=== PATIENT | male | born 1995 | race Caucasian/White ===

== ENCOUNTER 2020-05-27 02:08 | Emergency (ER) | payer BC, MEDICAID ==
[~2020-05-27] VITALS: Ht 180.3 cm; Wt 72.6 kg
[2020-05-27 02:15] VITALS: BP_SYST 142
--- NOTE | 2020-05-27 02:18 | NUR ---
Patient to ER bed 3 to gown for evaluation. Side rails up.
--- NOTE | 2020-05-27 02:20 | NUR ---
PT A&O X4 FROM HOME C/O OF RIGHT SHOULDER PAIN AFTER CLIMBING A 10FT FENCE EARLIER TODAY AT 4PM AND FELL OFF. PT STATES HE LANDED ON HIS SHOULDER. PT HAS AN ABRASION ON RIGHT EYEBROW. PT DENIES LOSS OF CONSCIOUSNESS. PT RATES PAIN 9 OUT OF 10. PT UNABLE TO MOBILIZE ARM WITHOUT EXTREME PAIN.
--- NOTE | 2020-05-27 02:26 | NUR ---
ER Dr. WASHINGTON at bedside examining patient.
[2020-05-27] MEDS ORDERED: IBUPROFEN 600 MG TABLET PO ONE (03:00)
--- NOTE | 2020-05-27 03:10 | NUR ---
patient placed in sling for right should per MD order.
[2020-05-27 03:22] VITALS: BP_SYST 124
--- NOTE | 2020-05-27 03:22 | NUR ---
Patient given written and verbal discharge instructions and verbalizes understanding. ER MD discussed with patient the results and treatment provided. Patient in stable condition. ID arm band removed. No Rx given. Patient educated on pain management and to follow up with PMD. Pain Scale 8/10. Opportunity for questions provided and answered. Medication side effect fact sheet provided.
== END 2020-05-27 03:22 | disposition home or self-care (01) ==
LOC: SED 02:08
DX: S42.031A Displaced fracture of lateral end of right clavicle, initial encounter for closed fracture (principal); S00.211A Abrasion of right eyelid and periocular area, initial encounter; F12.90 Cannabis use, unspecified, uncomplicated; F17.210 Nicotine dependence, cigarettes, uncomplicated; W18.39XA Other fall on same level, initial encounter; Y93.89 Activity, other specified; Y92.89 Other specified places as the place of occurrence of the external cause; Y99.8 Other external cause status
CPT/HCPCS: 73030; 99283

== ENCOUNTER 2021-01-26 11:04 | Emergency (ER) | payer BC, MEDICAID ==
[~2021-01-26] VITALS: Ht 180.3 cm; Wt 59.9 kg
[2021-01-26 11:18] VITALS: BP_SYST 139
[2021-01-26] MEDS ORDERED: NACL 0.9% 1,000 ML, NACL 0.9% 1,000 ML IV ONE (12:00)
[2021-01-26 12:02] LABS: BILIRUBIN,URINE NEGATIVE (NEGATIVE); BLOOD, URINE NEGATIVE (NEGATIVE); CLARITY/URINE CLEAR (CLEAR); COLOR,URINE YELLOW (YELLOW); GLUCOSE,URINE NEGATIVE (NEGATIVE); KETONES,URINE NEGATIVE (NEGATIVE); LEUKOCYTE ESTERASE ,URINE NEGATIVE (NEGATIVE); NITRITE, URINE NEGATIVE (NEGATIVE); PROTEIN URINE NEGATIVE (NEGATIVE); UROBILINOGEN,URINE 0.2 (0.2-1.0)
[2021-01-26] MEDS ORDERED: KETOROLAC TROMETHAMINE 15 MG VIAL IVP ONE (12:15)
[2021-01-26] MEDS ORDERED: ONDANSETRON HCL 4 MG/2 ML VIAL IVP ONE (12:15)
[2021-01-26 12:20] LABS: BASOPHILS # (AUTO) 0.1 K/uL (0.0-0.2); BASOPHILS % (AUTO) 1.1 % (0.0-2.0); EOSINOPHILS % (AUTO) 0.1 % (0.0-4.0); HEMATOCRIT 38.9 % (36-54); HEMOGLOBIN 13.4 g/dL (14.0-18.0); LYMPHOCYTES # (AUTO) 1.4 K/uL (1.0-5.5); LYMPHOCYTES % (AUTO) 26.7 % (20.5-51.5); MEAN CORPUSCULAR HEMOGLOBIN 36 pg (27-31); MEAN CORPUSCULAR HGB CONC 34 % (32-36); MEAN CORPUSCULAR VOLUME 103 fL (79.0-98.0); MONOCYTES # (AUTO) 0.3 K/uL (0.0-1.0); MONOCYTES % (AUTO) 6.1 % (1.7-9.3); NEUTROPHILS # (AUTO) 3.4 K/uL (1.8-7.7); PLATELET COUNT (AUTO) 251 K/uL (130-430); RED BLOOD CELL COUNT(AUTO) 3.77 MIL/uL (4.2-6.2); RED CELL DISTRIBUTION WIDTH 13.1 % (9.0-15.0); WHITE BLOOD COUNT (AUTO) 5.1 K/uL (4.8-10.8)
[2021-01-26 12:22] LABS: CALCIUM 9.2 mg/dL (8.4-11.0); CREATININE 1.1 mg/dL (0.55-1.30); POTASSIUM 3.3 mmol/L (3.5-5.1)
[2021-01-26 12:24] LABS: INR 1.1 (0.80-1.20)
[2021-01-26 12:28] LABS: ALBUMIN 3.7 g/dL (3.4-4.8); TOTAL BILIRUBIN 1.4 mg/dL (0.0-1.0)
[2021-01-26] MEDS ORDERED: POTASSIUM CHLORIDE 20 MEQ TAB.PRT.SR PO ONE (13:15)
[2021-01-26] MEDS ORDERED: ONDA-8 TL (14:07)
[2021-01-26 14:17] VITALS: BP_SYST 139
== END 2021-01-26 14:15 | disposition home or self-care (01) ==
LOC: SED 11:04
DX: T67.5XXA Heat exhaustion, unspecified, initial encounter (principal); R79.89 Other specified abnormal findings of blood chemistry; R42 Dizziness and giddiness; Z79.899 Other long term (current) drug therapy; X30.XXXA Exposure to excessive natural heat, initial encounter; Y93.89 Activity, other specified; Y92.89 Other specified places as the place of occurrence of the external cause; Y99.0 Civilian activity done for income or pay
CPT/HCPCS: 36415; 80053; 81003; 82550; 83690; 85025; 85610; 96361; 96374; 96375; 99284; J1885; J2405; J7030

== ENCOUNTER 2021-03-20 08:37 | Emergency (ER) | payer BC, MEDICAID ==
[~2021-03-20] VITALS: Ht 180.3 cm; Wt 72.6 kg
[~2021-03-20 08:37] MED LIST: ONDA-8 TL
[2021-03-20 08:57] VITALS: BP_SYST 139
--- NOTE | 2021-03-20 09:00 | NUR ---
Patient to ER bed H1 to gown for evaluation. Side rails up.
--- NOTE | 2021-03-20 09:02 | NUR ---
Pt brought by self , A&Ox4, pt presents to ER with L inguinal pain x 1 week, bruise noted in the area, pt states he may moved the wrong way. patient able to ambulate, will cont to monitor.
--- NOTE | 2021-03-20 09:05 | NUR ---
Dr Crespo evaluating patient at bedside
[2021-03-20] MEDS ORDERED: NAPR-690 PO (09:21)
[2021-03-20 09:30] VITALS: BP_SYST 139
--- NOTE | 2021-03-20 09:30 | NUR ---
Patient given written and verbal discharge instructions and verbalizes understanding. ER MD discussed with patient the results and treatment provided. Patient in stable condition. ID arm band removed. Rx of Naproxen given. Patient educated on pain management and to follow up with PMD. Pain Scale 3/10 tolerable for patient . Opportunity for questions provided and answered. Medication side effect fact sheet provided.
== END 2021-03-20 09:30 | disposition home or self-care (01) ==
LOC: SED 08:37
DX: S76.212A Strain of adductor muscle, fascia and tendon of left thigh, initial encounter (principal); X50.1XXA Overexertion from prolonged static or awkward postures, initial encounter; Z79.899 Other long term (current) drug therapy; Y93.89 Activity, other specified; Y92.89 Other specified places as the place of occurrence of the external cause; Y99.8 Other external cause status
CPT/HCPCS: 99282

== ENCOUNTER 2021-03-24 04:37 | Emergency (ER) | payer OTHER, MEDICAID ==
[~2021-03-24] VITALS: Ht 177.8 cm; Wt 72.6 kg
[~2021-03-24 04:37] MED LIST changes: +NAPR-690 PO
[2021-03-24 04:45] VITALS: BP_SYST 121
--- NOTE | 2021-03-24 05:35 | NUR ---
Patient to ER bed 8 to gown for evaluation. Side rails up. Report given to BRONWYN VILA.
--- NOTE | 2021-03-24 05:36 | NUR ---
Came in ER ambulatory from home this 26 year old male, AAOX4, breathing spontaneously at room air, not in distress noted. With chief complaints of nausea/ vomiting since yesterday, denies abd pain/ sob. no known medical history, s/p tonsillectomy, vital signs stable
--- NOTE | 2021-03-24 05:55 | NUR ---
Seen and examined by Dr. Bertrand, ER Attending
[2021-03-24 06:09] VITALS: BP_SYST 121
--- NOTE | 2021-03-24 06:09 | NUR ---
Patient given written and verbal discharge instructions and verbalizes understanding. ER MD discussed with patient the results and treatment provided. Patient in stable condition. ID arm band removed. no Rx of given. Patient educated to follow up with PMD. Pain Scale 0/10. Opportunity for questions provided and answered.
== END 2021-03-24 06:09 | disposition home or self-care (01) ==
LOC: SED 04:37
DX: R11.2 Nausea with vomiting, unspecified (principal); Z79.899 Other long term (current) drug therapy
CPT/HCPCS: 99281

== ENCOUNTER 2021-06-24 09:11 | Emergency (ER) | payer MEDICAID, SELFPAY ==
[~2021-06-24] VITALS: Ht 182.9 cm; Wt 63.5 kg
[2021-06-24 09:35] VITALS: BP_SYST 138
[2021-06-24] MEDS ORDERED: ONDANSETRON HCL 4 MG/2 ML VIAL IVP ONE (09:45)
[2021-06-24] MEDS ORDERED: NACL 0.9% 1,000 ML IV ONE (09:45)
[2021-06-24 10:07] LABS: BASOPHILS # (AUTO) 0.1 K/uL (0.0-0.2); BASOPHILS % (AUTO) 1.6 % (0.0-2.0); EOSINOPHILS % (AUTO) 0.2 % (0.0-4.0); HEMATOCRIT 43.1 % (36-54); HEMOGLOBIN 15.2 g/dL (14.0-18.0); LYMPHOCYTES # (AUTO) 2.7 K/uL (1.0-5.5); LYMPHOCYTES % (AUTO) 41.9 % (20.5-51.5); MEAN CORPUSCULAR HEMOGLOBIN 35 pg (27-31); MEAN CORPUSCULAR HGB CONC 35 % (32-36); MEAN CORPUSCULAR VOLUME 100 fL (79.0-98.0); MONOCYTES # (AUTO) 0.5 K/uL (0.0-1.0); MONOCYTES % (AUTO) 7.3 % (1.7-9.3); NEUTROPHILS # (AUTO) 3.1 K/uL (1.8-7.7); PLATELET COUNT (AUTO) 302 K/uL (130-430); RED BLOOD CELL COUNT(AUTO) 4.32 MIL/uL (4.2-6.2); WHITE BLOOD COUNT (AUTO) 6.3 K/uL (4.8-10.8)
[2021-06-24 10:21] LABS: CALCIUM 8.8 mg/dL (8.4-11.0); CREATININE 1.25 mg/dL (0.55-1.30); POTASSIUM 3.5 mmol/L (3.5-5.1)
[2021-06-24 10:26] LABS: ALBUMIN 4.4 g/dL (3.4-4.8); TOTAL BILIRUBIN 1.1 mg/dL (0.0-1.0)
[2021-06-24] MEDS ORDERED: ONDA-8 TL (10:40)
[2021-06-24 10:48] LABS: BILIRUBIN,URINE NEGATIVE (NEGATIVE); BLOOD, URINE NEGATIVE (NEGATIVE); CLARITY/URINE CLEAR (CLEAR); COLOR,URINE YELLOW (YELLOW); GLUCOSE,URINE NEGATIVE (NEGATIVE); KETONES,URINE NEGATIVE (NEGATIVE); LEUKOCYTE ESTERASE ,URINE NEGATIVE (NEGATIVE); NITRITE, URINE NEGATIVE (NEGATIVE); PROTEIN URINE NEGATIVE (NEGATIVE); UROBILINOGEN,URINE 0.2 (0.2-1.0)
[2021-06-24 11:00] LABS: BARBITURATE, URINE NEGATIVE (NEG <=200); BENZODIAZEPINE, URINE NEGATIVE (NEG <=150); CANNABINOID, URINE POSITIVE (NEG <=50); COCAINE, URINE NEGATIVE (NEG <=150); METHAMPHETAMINES SCREEN,URINE NEGATIVE (NEG <=500); OPIATE, URINE NEGATIVE (NEG <=100); PHENCYCLIDINE SCREEN,URINE NEGATIVE (NEG <=25); UR TRICYCLIC ANTIDEPRESSANTS NEGATIVE (NEG <=300); URINE AMPHETAMINE NEGATIVE (NEG <=500); URINE METHADONE NEGATIVE (NEG <=200); URINE OXYCODONE SCREEN NEGATIVE (NEG <=100); URINE PROPOXYPHENE SCREEN NEGATIVE (NEG <=300)
[2021-06-24 11:26] VITALS: BP_SYST 138
== END 2021-06-24 11:25 | disposition home or self-care (01) ==
LOC: SED 09:11
DX: F10.129 Alcohol abuse with intoxication, unspecified (principal); R11.10 Vomiting, unspecified; R19.7 Diarrhea, unspecified; F17.210 Nicotine dependence, cigarettes, uncomplicated; Z79.899 Other long term (current) drug therapy; Y90.8 Blood alcohol level of 240 mg/100 ml or more
CPT/HCPCS: 36415; 80053; 80307; 81003; 83690; 85025; 96361; 96374; 99283; G0482; J2405; J7030

== ENCOUNTER 2022-02-07 10:40 | Emergency (ER) | payer MEDICAID ==
[~2022-02-07] VITALS: Ht 182.9 cm; Wt 68.0 kg
[2022-02-07 15:02] LABS: BASOPHILS % (AUTO) 0.7 % (0.0-2.0); EOSINOPHILS % (AUTO) 0.5 % (0.0-4.0); HEMATOCRIT 38.3 % (36-54); HEMOGLOBIN 13.6 g/dL (14.0-18.0); LYMPHOCYTES # (AUTO) 0.9 K/uL (1.0-5.5); LYMPHOCYTES % (AUTO) 14.2 % (20.5-51.5); MEAN CORPUSCULAR HEMOGLOBIN 34 pg (27-31); MEAN CORPUSCULAR HGB CONC 36 % (32-36); MEAN CORPUSCULAR VOLUME 95 fL (79.0-98.0); MONOCYTES # (AUTO) 0.4 K/uL (0.0-1.0); MONOCYTES % (AUTO) 6.3 % (1.7-9.3); NEUTROPHILS # (AUTO) 4.8 K/uL (1.8-7.7); NEUTROPHILS % (AUTO) 78.3 % (40.0-70.0); PLATELET COUNT (AUTO) 173 K/uL (130-430); RED BLOOD CELL COUNT(AUTO) 4.04 MIL/uL (4.2-6.2); RED CELL DISTRIBUTION WIDTH 12.9 % (9.0-15.0); WHITE BLOOD COUNT (AUTO) 6.1 K/uL (4.8-10.8)
[2022-02-07 15:15] VITALS: BP_SYST 135
[2022-02-07 15:35] LABS: CALCIUM 9.1 mg/dL (8.4-11.0); CREATININE 0.94 mg/dL (0.55-1.30)
[2022-02-07 15:42] LABS: ALBUMIN 4.5 g/dL (3.4-4.8); C-REACTIVE PROTEIN QUANT 1.7 mg/dL (0-0.5); TOTAL BILIRUBIN 2.3 mg/dL (0.0-1.0)
[2022-02-07 15:49] LABS: POTASSIUM 2.9 mmol/L (3.5-5.1)
--- NOTE | 2022-02-07 16:15 | NUR ---
FIRST CONTACT WITH PT. PT HERE WITH C/O ETOH WITHDRAWL. PT C/O SHAKINESS, UNABLE TO SLEEP. PT STATES HE DRINKS A BOTTLE OF VODKA A DAY X3 YRS AND HAS STOPPED X3 DAYS ONLY DRINKING A FEW SIPS TO PREVENT WITHDRAWLS/TAPER. REPORTS N/V A FEW DAYS AGO WHICH HAS NOW RESOLVED. SLIGHT YELLOWING OF SCLERA BILATERALLY. DENIES ABD PAIN. RESP EVEN AND UNLABORED. SINUS TACH ON THE MONITOR. WILL CONT TO MONITOR
[2022-02-07] MEDS ORDERED: ALPR0.5T PO (16:28)
[2022-02-07 16:37] LABS: BILIRUBIN,URINE NEGATIVE (NEGATIVE); BLOOD, URINE NEGATIVE (NEGATIVE); CLARITY/URINE CLEAR (CLEAR); COLOR,URINE YELLOW (YELLOW); GLUCOSE,URINE NEGATIVE (NEGATIVE); KETONES,URINE 2+ (NEGATIVE); LEUKOCYTE ESTERASE ,URINE NEGATIVE (NEGATIVE); NITRITE, URINE NEGATIVE (NEGATIVE); PROTEIN URINE NEGATIVE (NEGATIVE); UROBILINOGEN,URINE 0.2 (0.2-1.0)
[2022-02-07] MEDS ORDERED: NACL 0.9% 1,000 ML IV ONE (16:45)
[2022-02-07] MEDS ORDERED: LORazepam 2 MG/ML VIAL IVP ONE (16:45)
[2022-02-07] MEDS ORDERED: POTASSIUM CHLORIDE 20 MEQ/PKT PACKET PO ONE (17:00)
[2022-02-07 18:09] VITALS: BP_SYST 137
--- NOTE | 2022-02-25 19:50 | NUR ---
ADDENDUM: NaCl 0.9 % IV 1000ml START- 16:50hr END - 17:50 hr
== END 2022-02-07 18:09 | disposition home or self-care (01) ==
LOC: SED 10:40
DX: K70.10 Alcoholic hepatitis without ascites (principal); R10.11 Right upper quadrant pain; F41.9 Anxiety disorder, unspecified; F10.129 Alcohol abuse with intoxication, unspecified; Y90.6 Blood alcohol level of 120-199 mg/100 ml; Z79.899 Other long term (current) drug therapy
CPT/HCPCS: 99284; 96374; 96361; 80053; 82150; 83615; 83690; 85025; 86140; 36415; 83605; 81003; J2060; J7030; 96365; 96375; 99283

== ENCOUNTER 2022-02-23 10:29 | Emergency (ER) | payer MEDICAID ==
[~2022-02-23] VITALS: Ht 180.3 cm; Wt 74.8 kg
[~2022-02-23 10:29] MED LIST changes: +ALPR0.5T PO
[2022-02-23 10:34] VITALS: BP_SYST 131
[2022-02-23 11:40] LABS: BASOPHILS % (AUTO) 0.2 % (0.0-2.0); EOSINOPHILS # (AUTO) 0.1 K/uL (0.0-0.4); EOSINOPHILS % (AUTO) 1.9 % (0.0-4.0); HEMATOCRIT 41.3 % (36-54); HEMOGLOBIN 14.3 g/dL (14.0-18.0); LYMPHOCYTES # (AUTO) 2.1 K/uL (1.0-5.5); LYMPHOCYTES % (AUTO) 35.4 % (20.5-51.5); MEAN CORPUSCULAR HEMOGLOBIN 34 pg (27-31); MEAN CORPUSCULAR HGB CONC 35 % (32-36); MEAN CORPUSCULAR VOLUME 97 fL (79.0-98.0); MONOCYTES # (AUTO) 0.4 K/uL (0.0-1.0); NEUTROPHILS # (AUTO) 3.3 K/uL (1.8-7.7); NEUTROPHILS % (AUTO) 55.5 % (40.0-70.0); PLATELET COUNT (AUTO) 374 K/uL (130-430); RED BLOOD CELL COUNT(AUTO) 4.24 MIL/uL (4.2-6.2)
[2022-02-23 11:54] LABS: CALCIUM 9.7 mg/dL (8.4-11.0); CREATININE 1.12 mg/dL (0.55-1.30); POTASSIUM 4.1 mmol/L (3.5-5.1)
[2022-02-23 11:58] LABS: PROTHROMBIN TIME 10.1 SECS (9.5-12.5)
[2022-02-23 12:00] LABS: ALBUMIN 4.2 g/dL (3.4-4.8); TOTAL BILIRUBIN 0.5 mg/dL (0.0-1.0)
[2022-02-23 13:30] LABS: BILIRUBIN,URINE NEGATIVE (NEGATIVE); BLOOD, URINE NEGATIVE (NEGATIVE); CLARITY/URINE CLEAR (CLEAR); COLOR,URINE YELLOW (YELLOW); GLUCOSE,URINE NEGATIVE (NEGATIVE); KETONES,URINE NEGATIVE (NEGATIVE); LEUKOCYTE ESTERASE ,URINE NEGATIVE (NEGATIVE); NITRITE, URINE NEGATIVE (NEGATIVE); PROTEIN URINE NEGATIVE (NEGATIVE); UROBILINOGEN,URINE 0.2 (0.2-1.0)
--- NOTE | 2022-02-23 14:20 | NUR ---
Pt brought by self ,A&Ox4, pt presents to ER with episodes of insomnia, anxiety and tremors , VSS, no N/V/D noted, skin pink and warm, cap refill <3.
--- NOTE | 2022-02-23 14:30 | NUR ---
Dr Srivastava evaluating patient at this time
[2022-02-23] MEDS ORDERED: VIS25 PO (15:09)
[2022-02-23] MEDS ORDERED: MELA10TA PO (15:09)
[2022-02-23 15:27] VITALS: BP_SYST 131
--- NOTE | 2022-02-23 15:27 | NUR ---
Patient given written and verbal discharge instructions and verbalizes understanding. ER MD discussed with patient the results and treatment provided. Patient in stable condition. ID arm band removed. IV catheter removed intact and dressing applied, no active bleeding. Rx of MELATONIN, HYDROXINE PAMOATE given. Patient educated on pain management and to follow up with PMD. Pain Scale 0. Opportunity for questions provided and answered. Medication side effect fact sheet provided.
== END 2022-02-23 15:27 | disposition home or self-care (01) ==
LOC: SED 10:29
DX: F41.9 Anxiety disorder, unspecified (principal); G47.00 Insomnia, unspecified; F10.139 Alcohol abuse with withdrawal, unspecified; I10 Essential (primary) hypertension; Z79.899 Other long term (current) drug therapy
CPT/HCPCS: 99284; 71045; 80053; 85025; 85610; 87040; 36415; 83605; 81003; G0482